=== PATIENT | male | born 1990 | race Caucasian/White ===

== ENCOUNTER 2021-05-08 12:44 | Emergency (ER) | payer OTHER ==
[~2021-05-08] VITALS: Ht 182.9 cm; Wt 135.3 kg
[2021-05-08 14:42] LABS: BASOPHILS % (AUTO) 0 % (0-1); EOSINOPHILS % (AUTO) 0 % (1-7); LYMPHOCYTES % (AUTO) 7 % (22-44); MEAN CORPUSCULAR HEMOGLOBIN 29.9 pg (27.5-34.5); MEAN CORPUSCULAR HGB CONC 33.9 g/dL (33.2-36.2); MEAN PLATELET VOLUME 10.3 fL (7.4-10.4); MONOCYTES % (AUTO) 2 % (2-9); NEUTROPHILS % (AUTO) 92 % (42-75); PLATELET COUNT 265 x10^3/uL (130-400); RED BLOOD COUNT 5.28 x10^6/uL (4.38-5.82)
[2021-05-08 14:52] LABS: ALANINE AMINOTRANSFERASE 47 U/L (12-78); ANION GAP 9 mmol/L (5-15); CHLORIDE 105 mmol/L (98-107); CREATININE 0.99 mg/dL (0.7-1.3)
[2021-05-08 14:55] LABS: ALKALINE PHOSPHATASE 106 U/L (45-117); BILIRUBIN,TOTAL 0.6 mg/dL (0.2-1.0); TOTAL PROTEIN 8.2 g/dL (6.4-8.2)
--- NOTE | 2021-05-08 15:27 | NUR ---
TO ROOM FROM LOBBY. NAD.
[2021-05-08] MEDS ORDERED: SODIUM CHLORIDE FLUSH 10ML SYR IVF ONE (15:30)
--- NOTE | 2021-05-08 15:31 | NUR ---
left eye pain secribed as pressure x 2 weeks PT SENT FROM OPTHAMOLOGIST FOR MRI DUE TO SWELLING BEHIND HIS LEFT EYE AND CT OF CHEST FOR INFLAMMATION. "The opthomologist (Ree) said I have some sort of itis (infection) and it is my eye and chest."
--- NOTE | 2021-05-08 15:54 | NUR ---
TASK RN: VISUAL ACUITY ASSESSMENT COMPLETED. PATIENT ONLY ABLE TO COUNT FINGER WITH LEFT EYE AND ONLY WITHIN 10FEET. ERP-PA MADE AWARE
[2021-05-08] MEDS ORDERED: LORazepam 1MG TABLET ONE (16:29)
[2021-05-08] MEDS ORDERED: LORazepam 1MG TABLET PO ONE (16:30)
[2021-05-08 16:36] VITALS: BP 143/87
--- NOTE | 2021-05-08 16:36 | NUR ---
PT TO MRI
[2021-05-08] MEDS ORDERED: LORazepam 2 MG/ML, 1ML ONE (16:52)
--- NOTE | 2021-05-08 16:52 | NUR ---
[facility] - [phone] Call for ride
--- NOTE | 2021-05-08 16:58 | NUR ---
pt having panic atttack in mri per die cast technician. this rn brought down 1mg iv ativan and admistered as ordered.
[2021-05-08] MEDS ORDERED: LORazepam 2 MG/ML, 1ML IVPush ONE (17:00)
[2021-05-08] MEDS ORDERED: GADOTERATE 7.5 MMOL/15ML SYR ONE (17:48)
--- NOTE | 2021-05-08 18:29 | NUR ---
pt back from mri.
--- NOTE | 2021-05-08 18:40 | NUR ---
TASK RN, PT TO CT
[2021-05-08] MEDS ORDERED: OMNIPAQUE 350 MG/ML, 100ML BOTTLE ONE (19:00)
--- NOTE | 2021-05-08 19:05 | NUR ---
PT BACK FROM CT SCAN.
--- NOTE | 2021-05-08 20:43 | NUR ---
F/U AND D/C INSTRUCTIONS GIVEN TO PT AND HE V/U. PT AMBULATED TO DISCHARGE DESK.
[2021-05-15] MEDS ORDERED: BUPR100T11 PO (15:41)
[2021-05-15] MEDS ORDERED: PANT20TA4 PO (15:41)
[2021-05-15] MEDS ORDERED: HYDR-2995 PO (15:42)
== END 2021-05-08 20:49 | disposition home or self-care (01) ==
LOC: ED 20:40
DX: G35 Multiple sclerosis (principal); H57.12 Ocular pain, left eye; G89.29 Other chronic pain
CPT/HCPCS: 36415; 70543; 70553; 71260; 80053; 85025; 96374; 99285; A9575; J2060; Q9967

== ENCOUNTER 2021-05-09 13:09 | Emergency (ER) | payer OTHER ==
[2021-05-15] MEDS ORDERED: BUPR100T11 PO (15:41)
[2021-05-15] MEDS ORDERED: PANT20TA4 PO (15:41)
[2021-05-15] MEDS ORDERED: HYDR-2995 PO (15:42)
== END 2021-05-09 13:22 | disposition left against medical advice (07) ==
LOC: ED 13:19
DX: R68.89 Other general symptoms and signs (principal); Z53.21 Procedure and treatment not carried out due to patient leaving prior to being seen by health care provider